=== PATIENT | female | born 1980 | race African-American/Black ===

== ENCOUNTER 2024-02-14 09:08 | Outpatient (CLI) | payer BC, OTHER | END 2024-02-14 09:09 | disposition home or self-care (01) | LOC: CSHMAMMO 09:08 | PROVIDERS: ATTEND Nurse Practitioner Family | DX: Z12.31 Encounter for screening mammogram for malignant neoplasm of breast (principal); Z80.3 Family history of malignant neoplasm of breast | CPT/HCPCS: 77063; 77067 ==

== ENCOUNTER 2024-02-27 11:17 | Emergency (ER) | payer BC, OTHER ==
[2024-02-27] MEDS ORDERED: diphenhydrAMINE 50 MG/ML VIAL ONE (14:29)
[2024-02-27] MEDS ORDERED: Prochlorperazine 10 MG/2 ML VIAL ONE (14:29)
[2024-02-27] MEDS ORDERED: Ketorolac Tromethamine 30 MG (1 mL) VIAL ONE (14:29)
[2024-02-27 14:35] LABS: #Basophils 0.02 10x3/uL (0.0-0.2); #Eosinophils 0.05 10x3/uL (0.0-0.5); #Monocytes 0.66 10x3/uL (0.0-1.1); #Neutrophils 4.74 10x3/uL (1.5-8.4); %Basophils 0.3 % (0.0-2.0); %Eosinophils 0.7 % (0.0-6.0); %Lymphocytes 20.8 % (18.0-47.0); %Monocytes 9.5 % (0.0-10.0); %Neutrophils 68.4 % (40.0-75.0); Hematocrit 43.1 % (34.9-44.5); Hemoglobin 14.7 g/dL (12.0-15.5); Mean Corpuscular HGB CONC 34.1 g/dL (32.0-36.0); Mean Corpuscular Hemoglobin 28.9 pg (27.0-33.0); Mean Corpuscular Volume 84.8 fL (81.6-98.3); Platelet Count 266 10x3/uL (150-450); RBC Distribution Width 12.6 % (11.5-14.5); Red Blood Cell (RBC) Count 5.08 10x6/uL (3.90-5.03); White Blood Cell (WBC) Count 6.9 10x3/uL (3.5-10.5)
[2024-02-27 14:42] LABS: Anion Gap 12 mmol/L (10-20); BUN (Urea Nitrogen) 8 mg/dL (7.0-18.7); Calc. Creatinine Clearance 0 mL/min (70-130); Calcium 9.2 mg/dL (7.8-10.44); Carbon Dioxide 24 mmol/L (22-29); Chloride 104 mmol/L (98-107); Estimated GFR 77; Glucose 90 mg/dL (70-105); Potassium 3.6 mmol/L (3.5-5.1); Sodium 136 mmol/L (136-145)
== END 2024-02-27 16:57 | disposition home or self-care (01) ==
LOC: CSHERS 11:17
DX: G43.909 Migraine, unspecified, not intractable, without status migrainosus (principal); R29.700 NIHSS score 0; I10 Essential (primary) hypertension
CPT/HCPCS: 80048; 85025; 96374; 96375; J0780; J1200; J1885